=== PATIENT | female | born 1995 | race Caucasian/White ===

== ENCOUNTER 2017-12-14 02:59 | Emergency (ER) | payer BC, SELFPAY ==
[2017-12-14] MEDS ORDERED: Ondansetron HCl/PF 4 MG/2 ML Vial ONE (03:04)
== END 2017-12-14 05:49 | disposition home or self-care (01) ==
LOC: ERS 02:59
DX: F10.129 Alcohol abuse with intoxication, unspecified (principal)
CPT/HCPCS: 96374; J2405